=== PATIENT | male | born 1955 | race Caucasian/White ===

== ENCOUNTER 2022-10-09 11:46 | Emergency (ER) | payer OTHER, MEDICAID ==
[~2022-10-09] VITALS: Ht 177.8 cm; Wt 102.1 kg
[2022-10-09 12:00] VITALS: BP_SYST 141
--- NOTE | 2022-10-09 12:00 | NUR ---
Placed in room 04 . Placed on monitor car operator, blood pressure machine and pulse oximeter. To gown for exam. Side rails up. Report given to MADI PARRA.
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
[2022-10-09] MEDS ORDERED: NACL 0.9% 1,000 ML IV ONE (12:30)
--- NOTE | 2022-10-09 12:30 | NUR ---
CT WITH CONTRAST CONSENT FORM SIGNED AND EXPLAINED TO PT
[2022-10-09 12:42] LABS: BASOPHILS # (AUTO) 0.1 K/uL (0.0-0.2); BASOPHILS % (AUTO) 0.5 % (0.0-2.0); EOSINOPHILS # (AUTO) 0.2 K/uL (0.0-0.4); EOSINOPHILS % (AUTO) 1.4 % (0.0-4.0); HEMATOCRIT 38.5 % (36-54); HEMOGLOBIN 12.3 g/dL (14.0-18.0); LYMPHOCYTES # (AUTO) 2.1 K/uL (1.0-5.5); MEAN CORPUSCULAR HEMOGLOBIN 21 pg (27-31); MEAN CORPUSCULAR HGB CONC 32 % (32-36); MEAN CORPUSCULAR VOLUME 67 fL (79.0-98.0); MONOCYTES # (AUTO) 1.1 K/uL (0.0-1.0); MONOCYTES % (AUTO) 7.7 % (1.7-9.3); NEUTROPHILS # (AUTO) 10.5 K/uL (1.8-7.7); NEUTROPHILS % (AUTO) 75.4 % (40.0-70.0); PLATELET COUNT (AUTO) 266 K/uL (130-430); RED BLOOD CELL COUNT(AUTO) 5.78 MIL/uL (4.2-6.2); RED CELL DISTRIBUTION WIDTH 16.3 % (9.0-15.0); WHITE BLOOD COUNT (AUTO) 13.9 K/uL (4.8-10.8)
[2022-10-09 12:55] LABS: CALCIUM 8.8 mg/dL (8.4-11.0); CREATININE 0.92 mg/dL (0.55-1.30)
[2022-10-09 13:00] LABS: ALBUMIN 4.3 g/dL (3.4-4.8); TOTAL BILIRUBIN 0.5 mg/dL (0.0-1.0)
[2022-10-09] MEDS ORDERED: iohexoL 350 mgI/mL, 100 ML INFUS..BTL IV ONE (13:10)
--- NOTE | 2022-10-09 13:14 | NUR ---
TAKEN TO RADIOLOGY VIA [facility]
[2022-10-09 13:46] LABS: BILIRUBIN,URINE NEGATIVE (NEGATIVE); BLOOD, URINE 3+ (NEGATIVE); CLARITY/URINE CLEAR (CLEAR); COLOR,URINE RED (YELLOW); GLUCOSE,URINE NEGATIVE (NEGATIVE); KETONES,URINE NEGATIVE (NEGATIVE); LEUKOCYTE ESTERASE ,URINE TRACE (NEGATIVE); NITRITE, URINE NEGATIVE (NEGATIVE); PROTEIN URINE 2+ (NEGATIVE); UROBILINOGEN,URINE 0.2 (0.2-1.0)
[2022-10-09] MEDS ORDERED: cefTRIAXone 1 GM IVPB PREMIX 50 ML IV ONE (14:00)
[2022-10-09] MEDS ORDERED: LISI10TA29 PO (14:02)
[2022-10-09] MEDS ORDERED: DEXL30CA3 PO (14:02)
[2022-10-09] MEDS ORDERED: CEPH-548 PO (14:09)
--- NOTE | 2022-10-09 14:16 | NUR ---
PT RESTING COMFORTABLY, NO CHANGES. PT INCONTINENT OF LARGE AMT OF URINE. USING ADULT DIAPERS
[2022-10-09 14:25] LABS: BACTERIA,URINE None Seen /HPF (None Seen)
[2022-10-09 15:07] VITALS: BP_SYST 141
--- NOTE | 2022-10-09 15:07 | NUR ---
Patient given verbal discharge instructions and verbalizes understanding. ER MD discussed with patient the results and treatment provided. Patient in stable condition. ID arm band removed. IV catheter removed intact and dressing applied, no active bleeding. Rx of cephalexin, dexilant, lisinopril given. Patient educated on pain management and to follow up with PMD. Pain Scale 0/10 Opportunity for questions provided and answered. Medication side effect fact sheet provided.
--- NOTE | 2022-10-09 15:07 | NUR ---
Note leticiaone in EDM - 10/09/22 at 1522 by [email or web address] pt threatened to walk out and leave hospital regardless if IV was removed or not. IV was removed by RN upon pt request. pt was advised that MD was awaiting for results for one more lab, however pt stated he was upset and wanted to leave. pt was advised that a nurse can assist to sign him out AMA if he didn't want to wait for results, however he said he will refuse to sign any papers. upon confirmation that there was no bleeding observed from IV insertion site. pt obtained his belongings and left AMA without signing paperwork.
--- NOTE | 2022-10-09 15:07 | NUR ---
pt threatened to walk out and leave hospital regardless if IV was removed or not. IV was removed by RN upon pt request. pt was advised that MD was awaiting for results for one more lab, however pt stated he was upset and wanted to leave. Upon confirmation that there was no bleeding observed from IV insertion site, pt obtained his belongings and left.
== END 2022-10-09 15:07 | disposition home or self-care (01) ==
LOC: SED 11:46
DX: R31.9 Hematuria, unspecified (principal); R32 Unspecified urinary incontinence; D72.829 Elevated white blood cell count, unspecified; E78.5 Hyperlipidemia, unspecified; E11.9 Type 2 diabetes mellitus without complications; I10 Essential (primary) hypertension; Z79.899 Other long term (current) drug therapy
CPT/HCPCS: 99285; 74177; 96365; 96361; 80053; 81000; 83690; 85025; 87040; 36415; 76376; 83605; Q9967; J0696; J7030